=== PATIENT | male | born 1950 | race Caucasian/White ===

== ENCOUNTER → 2016-11-23 | Outpatient (CLI) | payer MEDICARE ==
[~2016-11-23] VITALS: Ht 175.3 cm; Wt 72.2 kg
[~2016-11-23] MED LIST: CHLORHEXIDINE GLUCONATE 2 % 1 PACK (2 CLOTHS) TOPICAL PRN; DEXTROSE 5% IN WATE 1000ML INJ 1,000 ML IV SCH; INSULIN HUMAN REGULAR 1,000 UNITS/10 ML VIAL SQ PRN; LACTATED RINGER'S 1000 ML IV PRN; METOPROLOL TARTRATE 25 MG TAB PO PRN; POVIDONE IODINE 5% (ANTISEPSIS KIT) 4 APPLICATIONS EACH NARE PRN; PROPOFOL 200 MG/20 ML AMP IV PUSH ONE; SODIUM CHLORID 0.9% 500 ML IV PRN; VENTAER INH
[2016-11-23 13:14] VITALS: BP 144/94; PULSE 77; RESP 18; TEMP 98.4; O2SAT 96
[2016-11-23 15:48] VITALS: BP 139/71; PULSE 74; RESP 18; TEMP 97.8; O2SAT 98
--- NOTE | 2016-11-24 18:42 | EKG ---
Date Performed: 11/23/2016 Time Performed: 13:09:35 PTAGE: 66 years EKG: Sinus rhythm NORMAL ECG NO PREVIOUS TRACING DOCTOR: Alfredito Cummins Interpretating Date/Time 11/24/2016 18:41:33
--- NOTE | 2016-12-13 12:45 | MR ---
cc: CHELSEA ASHTON M.D., JOHN T. M.D. DATE 11/23/2016 PREOPERATIVE DIAGNOSIS Screening colonoscopy POSTOPERATIVE DIAGNOSIS Normal colonoscopy PROCEDURE Total colonoscopy ANESTHESIA Monitored anesthesia care SURGEON Dr. Hays OPERATIVE FINDINGS This patient has never had a colonoscopy. For this reason, colonoscopy screening was recommended. At colonoscopy, no polyps or other mucosal lesions were seen. The prep was good. There was some fluid around, but a fairly good look was obtained. OPERATIVE TECHNIQUE The patient was placed on table in the left lateral position, given intravenous monitored anesthesia care and then the colonoscope was introduced through the anal canal to the rectum, the rectosigmoid colon, descending and transverse colon, ascending colon to the cecum. The ileocecal valve was seen, as was the base the appendix. The scope was sequentially withdrawn sequentially look at the mucosa. Getting a fairly good look at the mucosa, the scope was eventually withdrawn. The patient tolerated the procedure well and left the GI lab in good condition. MD SALVADOR Yo/GAUTAM /9:35 AM /12:32 PM
== END ==
LOC: HOR 12:39
PROVIDERS: ATTEND Colon & Rectal Surgery
DX: Z12.11 Encounter for screening for malignant neoplasm of colon (principal); Z01.810 Encounter for preprocedural cardiovascular examination
CPT/HCPCS: 93005